=== PATIENT | female | born 1965 | race African-American/Black ===

== ENCOUNTER 2017-09-25 13:10 | Emergency (ER) | payer BC, MEDICAID ==
[~2017-09-25] VITALS: Ht 162.6 cm; Wt 103.0 kg
[2017-09-25 19:09] VITALS: BP 150/97
== END 2017-09-25 20:00 | disposition home or self-care (01) ==
LOC: ER 13:10
DX: H66.91 Otitis media, unspecified, right ear (principal); I10 Essential (primary) hypertension; R05 Cough; J32.1 Chronic frontal sinusitis
CPT/HCPCS: 99283; Z7610